=== PATIENT | female | born 1960 | race Caucasian/White ===

== ENCOUNTER 2017-09-28 11:11 | Emergency (ER) | payer OTHER ==
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
[2017-09-28] MEDS ORDERED: Ketorolac Tromethamine 60 MG/2 ML VIAL ONE (15:02)
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
== END 2017-09-28 15:54 | disposition home or self-care (01) ==
LOC: ERS 11:11
DX: S29.012A Strain of muscle and tendon of back wall of thorax, initial encounter (principal); F32.9 Major depressive disorder, single episode, unspecified; Z79.899 Other long term (current) drug therapy; V89.2XXA Person injured in unspecified motor-vehicle accident, traffic, initial encounter
CPT/HCPCS: 72072; 72100; 72128; 72131; 96372; J1885

== ENCOUNTER 2017-11-18 15:02 | Outpatient (CLI) | payer OTHER ==
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
== END 2017-11-18 15:03 | disposition home or self-care (01) ==
LOC: TBSIIMAG 15:02
PROVIDERS: ATTEND Physician Assistant Surgical
DX: M54.2 Cervicalgia (principal); M47.892 Other spondylosis, cervical region; M48.02 Spinal stenosis, cervical region; M99.81 Other biomechanical lesions of cervical region
CPT/HCPCS: 72141

== ENCOUNTER 2017-11-30 07:36 | Outpatient (CLI) | payer OTHER ==
[2017-11-30] MEDS ORDERED: Gadobenate Dimeglumine 529 MG/1 ML (20ML VIAL) ONE (10:07)
--- NOTE | 2017-11-30 10:46 | MRI ---
MRI LUMBAR SPINE WITHOUT IV CONTRAST: INDICATION: Low back pain. COMPARISON: Prior exam dated 07/18/15. FINDINGS: Bone marrow signal intensity appears within normal limits. At the L5-S1 level, there is a mild broad-based disk bulge and mild facet joint degenerative change. No central canal or neural foraminal narrowing is evident. At L4-5, there is a mild broad-based disk bulge and mild facet joint degenerative change. The disk b ulge does encroach upon the neural foramina without definite impingement. This is stable to the prio r exam. At L3-4, there is a broad-based bulge with facet hypertrophy. The broad-based bulge does encroachmen t upon the neural foramina that appears similar to the prior exam. At the L2-3 level, there is a mild broad-based disk bulge with facet joint degenerative change. The broad-based bulge does encroach upon the inferior aspect of the neural foramina without definite impi ngement. This is stable to the prior exam. At L1-L2, there is a mild broad-based bulge with facet hypertrophy. There is no appreciable central canal or neural foraminal narrowing. This appears similar to the comparison exam. At T12-L1, there is no appreciable central canal or neural foraminal narrowing. IMPRESSION: Stable multilevel spondylosis of the lumbar spine. POS: [facility]
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
== END 2017-11-30 07:37 | disposition home or self-care (01) ==
LOC: TBSIIMAG 07:36
PROVIDERS: ATTEND Physician Assistant Surgical
DX: M54.5 Low back pain (principal); M54.6 Pain in thoracic spine; R51 Headache; F07.81 Postconcussional syndrome; M47.896 Other spondylosis, lumbar region; M51.24 Other intervertebral disc displacement, thoracic region; R93.7 Abnormal findings on diagnostic imaging of other parts of musculoskeletal system; Z98.890 Other specified postprocedural states
CPT/HCPCS: 70553; 72148; 72157; A9579

== ENCOUNTER 2020-10-10 09:13 | Outpatient (CLI) | payer OTHER | END 2020-10-10 09:14 | disposition home or self-care (01) | LOC: BICULT 09:13 | PROVIDERS: ATTEND Internal Medicine Nephrology | DX: I12.9 Hypertensive chronic kidney disease with stage 1 through stage 4 chronic kidney disease, or unspecified chronic kidney disease (principal); N18.30 Chronic kidney disease, stage 3 unspecified; N26.1 Atrophy of kidney (terminal); N28.89 Other specified disorders of kidney and ureter | CPT/HCPCS: 76770 ==

== ENCOUNTER 2022-07-23 07:38 | Outpatient (CLI) | payer BC | END 2022-07-23 07:39 | disposition home or self-care (01) | LOC: TBSIIMAG 07:38 | PROVIDERS: ATTEND Anesthesiology Pain Medicine | DX: M50.11 Cervical disc disorder with radiculopathy, high cervical region (principal) | CPT/HCPCS: 72141 ==

== ENCOUNTER 2022-09-22 12:28 | Emergency (ER) | payer BC ==
[2022-09-22 13:01] LABS: #Eosinphils 0.1 thou/uL (0.0-0.7); #Monocytes 0.6 thou/uL (0.11-0.59); %Basophils 0.5 % (0.0-1.0); %Eosinophils 0.8 % (0.0-10.0); %Lymphocytes 22.4 % (21.0-51.0); %Monocytes 8.1 % (0.0-10.0); %Neutrophils 67.9 % (42.0-75.0); Hemoglobin 14.1 g/dL (12.0-16.0); Mean Corpuscular HGB CONC 33.3 g/dL (32.0-36.0); Mean Corpuscular Hemoglobin 31.8 pg (27.0-31.0); Mean Corpuscular Volume 95.7 fl (78.0-98.0); Mean Platelet Volume 9.1 fL (7.4-10.4); Platelet Count 239 10x3/uL (130-400); RBC Distribution Width 12.4 % (11.5-14.5); Red Blood Cell (RBC) Count 4.43 mill/uL (4.20-5.40); White Blood Cell (WBC) Count 7.3 10x3/uL (4.8-10.8)
[2022-09-22 13:37] LABS: ALT (SGPT) 19 U/L (8-55); AST (SGOT) 20 U/L (5-34); Albumin 4.1 g/dL (3.4-4.8); Alkaline Phosphatase 71 U/L (40-110); Anion Gap 11 mmol/L (10-20); BUN (Urea Nitrogen) 20 mg/dL (9.8-20.1); Bilirubin, Total 0.3 mg/dL (0.2-1.2); Calc. Creatinine Clearance 0 mL/min (70-130); Calcium 10.3 mg/dL (7.8-10.44); Carbon Dioxide 26 mmol/L (23-31); Chloride 106 mmol/L (98-107); Estimated GFR 81; Globulin 2.7 g/dL (2.4-3.5); Glucose 121 mg/dL (80-115); Lipase 13 U/L (8-78); Potassium 4.8 mmol/L (3.5-5.1); Protein, Total 6.8 g/dL (5.8-8.1); Sodium 138 mmol/L (136-145)
== END 2022-09-22 15:00 | disposition home or self-care (01) ==
LOC: ERS 12:28
DX: R07.9 Chest pain, unspecified (principal); N18.30 Chronic kidney disease, stage 3 unspecified
CPT/HCPCS: 36415; 71046; 80053; 83690; 84484; 85025; 93005

== ENCOUNTER 2023-04-30 10:21 | Outpatient (CLI) | payer BC | END 2023-04-30 10:22 | disposition home or self-care (01) | LOC: BICRAD 10:21 | PROVIDERS: ATTEND Physician Assistant | DX: R05.9 Cough, unspecified (principal) | CPT/HCPCS: 71046 ==